=== PATIENT | female | born 1980 | race Caucasian/White ===

== ENCOUNTER → 2018-08-05 10:15 | Outpatient (CLI) | payer BC, SELFPAY ==
--- NOTE | 2018-08-05 10:17 | MR_ITS ---
MR shoulder RT wo con Ordering Physician: Srikanth Parrish Patient Age: 38 years: Female HISTORY: ITS.REASON: RT SHOULDER PAIN TECHNIQUE: Multiplanar multisequence imaging on 1.5 T MR COMPARISON : . Plain films 07/26/2018 pre and post reduction FINDINGS . Large joint effusion There is a been anterior dislocation and there is a Hill-Sachs deformity along the posterior superior aspect of humeral head. This yields a be likely defect on the coronal images and on axial images there is Mild concavity at the entry site. Surrounding bone edema throughout the proximal humeral head... The osseous glenoid is intact with no fracture but there may be some scant very minor bone edema at the anterior inferior margin glenoid On coronal views note the inferior margin inferior labrum appears slightly blunted& question may be some very subtle injury at the very inferior tip of the inferior labrum. Otherwise the Anterior inferior labrum otherwise I believe is intact . I would question and suspect there may be a a subtle tear at the beneath the superior labrum as it approaches the biceps tendon, axial image 11 coronal 12-10. Some minimal fluid undercutting the superior labrum is noted on these slices. There is a large joint effusion. Posterior glenoid labrum seem to be intact. . Infraspinatus and subscapularis tendon intact. The glenohumeral joint intact.. AC joint intact. The supraspinatus tendon intact with only some mild tendinopathy and edema. Biceps tendon appears intact well-visualized. IMPRESSION: 1. Findings reflect sequela of recent anterior dislocation.: .... Hill-Sachs Deformity clearly evident. Impaction deformity at the posterior superior aspect of humeral head. Surrounding Bone Edema throughout humeral head. ... No fractures evident at the osseous glenoid there may be some scant edema at the anterior inferior margin .... Question/suspect for possible a subtle superior labral tear. ... Also there may be some subtle truncation at the inferior most margin of the inferior labrum. 2. Large joint effusion. 3. Rotator cuff intact, with only perhaps mild edema] & minimal tendinopathy supraspinatus tendon. Biceps tendon intact.
== END ==
PROVIDERS: Visit Provider Orthopaedic Surgery
DX: M25.511 Pain in right shoulder (principal)
CPT/HCPCS: 73221